=== PATIENT | female | born 1995 | race American Indian/Alaskan Native ===

== ENCOUNTER 2018-01-05 11:45 | Inpatient (IN) | payer MEDICAID, OTHER ==
[2018-01-05 11:45] VITALS: BMI 28.1
[2018-01-05 11:50] VITALS: O2SAT 100
--- NOTE | 2018-01-05 13:57 | ED PDOC ---
HPI: Psych/Substance Abuse Time Seen by Provider: 01/05/18 12:21 Chief Complaint (Nursing): Psychiatric Evaluation Chief Complaint (Provider): Psychiatric Evaluation History Per: Patient History/Exam Limitations: no limitations Onset/Duration Of Symptoms: Days Current Symptoms Are (Timing): Still Present Suicide/Self Injury Attempted (Context): None Associated Symptoms: Depression Additional Complaint(s): 22 y/o female with a history of depression, bipolar disorder, and ADHD presents to the ED for psychiatric evaluation. Patient states worsening depression began back in May 2017. She has a psychiatrist in [place] that has been prescribing her different medications which she states work for a few weeks, then stop working. She complains that she can't concentrate or perform well at work and will wake up in the morning crying. Patient states "I can't control my mind". Patient states she's been losing people around her because of her current condition. Denies any suicidal or homicidal ideation or visual/auditory hallucinations. Patient offers no physical complaints at present. LMP: 2 weeks ago. PMD: Dr. Calderón Past Medical History Reviewed: Historical Data, Nursing Documentation, Vital Signs Vital Signs: Last Vital Signs Temp 98.8 F 01/05/18 11:49 Pulse 78 01/05/18 11:49 Resp 20 01/05/18 11:49 BP 130/82 01/05/18 11:49 Pulse Ox 100 01/05/18 11:49 - Medical History PMH: Bipolar Disorder, Depression Denies: Asthma, Diabetes, HTN Other PMH: ADHD - Surgical History Surgical History: No Surg Hx - Family History Family History: States: Unknown Family Hx - Social History Current smoker - smoking cessation education provided: No Ex-Smoker (has not smoked in the last 12 months): No Alcohol: Social Drugs: Cannabis - Home Medications Home Medications: Ambulatory Orders Medication Instructions Recorded Biotin [Biotin] 1 cap PO DAILY 01/05/18 Dextroamphetamine/Amphetamine 30 mg PO BID 01/05/18 [Adderall 30 mg Tablet] FLUoxetine [Prozac] 20 mg PO Q12 01/05/18 Multivitamin [Multi-Vitamin Daily] 1 tab PO DAILY 01/05/18 OXcarbazepine [Trileptal] 300 mg PO DAILY 01/05/18 OXcarbazepine [Trileptal] 600 mg PO QPM 01/05/18 - Allergies Allergies/Adverse Reactions: Allergies Allergy/AdvReac Type Severity Reaction Status Date / Time No Known Allergies Allergy Verified 10/10/17 15:56 Review of Systems ROS Statement: Except As Marked, All Systems Reviewed And Found Negative Psych: Positive for: Depression. Negative for: Suicidal ideation (or homicidal ideation) Physical Exam - Reviewed Nursing Documentation Reviewed: Yes Vital Signs Reviewed: Yes - Physical Exam Comments: GENERAL APPEARANCE: Patient is awake, alert, oriented x 3. Emotionally distraught and tearful. SKIN: Warm, dry; (-) cyanosis EYES: (-) conjunctival pallor, (-) scleral icterus, (-) nystagmus. ENMT: Mucous membranes moist. Airway patent: (-) stridor. NECK: Supple, FROM (-) tenderness, (-) stiffness, (-) lymphadenopathy. CHEST AND RESPIRATORY: (-) rales, (-) rhonchi, (-) wheezes; breath sounds equal. Speaking in full sentences, respirations even and nonlabored. ABDOMEN: Soft, (-) distention, (-) tenderness, (-) guarding. NEURO AND PSYCH: Mental status as above. twx operator: Intact. Pupils equal and reactive; EOMI; (-) facial asymmetry; Gait steady , speech clear. - Laboratory Results Result Diagrams: 01/05/18 16:08 01/05/18 16:08 Urine POC: Negative - ECG O2 Sat by Pulse Oximetry: 100 (RA) Pulse Ox Interpretation: Normal Medical Decision Making Medical Decision Making: Time: 13:10 Impression: Depression Plan: * Crisis evaluation * Preg test Preg test: Negative 1510 Per crisis evaluation, patient to be admitted for Depression per Dr Starr. -CBC, CMP, U/A, and urine drug screen ordered Patient resting comfortably on re-evaluation with no additional complaints at this time. 1555 Patient reporting a frontal headache at this time. Patient reports a history of similar headaches. Denies N/V, visual changes, numbness/weakness, fever, neck pain/stiffness. Ibuprofen 600mg PO ordered. 1635 Labs reviewed and grossly unremarkable. Vitals stable. Patient is medically stable for psychiatric admission. On exam, patient remains AAOx3, in no acute distress. On exam, neck is supple, lungs CTA, cardiac RRR, abdomen is soft and non-tender, neuro exam shows no focal findings. Diagnostic results d/w the patient in great detail. Dx of depression d/w the patient. Based on history, exam, and diagnostic results plan will be for inpatient admission. Arrangements made for admission. Scribe Attestation: Documented by Murphy Castro acting as a scribe LUIGI Vidal MDibe Attestation: All medical record entries made by the Scribe were at my direction and personally dictated by me. I have reviewed the chart and agree that the record accurately reflects my personal performance of the history, physical exam, medical decision making, and the department course for this patient. I have also personally directed, reviewed, and agree with the discharge instructions and disposition. Disposition - Clinical Impression Clinical Impression: Depression - Patient ED Disposition Is Patient to be Admitted: Yes Counseled Patient/Family Regarding: Diagnosis - Disposition Disposition Time: 16:38 Condition: FAIR - Pt Status Changed To: Hospital Disposition Of: Inpatient - Admit Certification Admit to Inpatient:: After my assessment, the patient will require hospitalization for at least two midnights. This is because of the severity of symptoms shown, intensity of services needed, and/or the medical risk in this patient being treated as an outpatient. - POA Present On Arrival: None Results - Lab Results Lab Results: 01/05/18 01/05/18 01/05/18 16:08 16:08 15:43 WBC 7.9 RBC 4.43 Hgb 11.6 L D Hct 35.1 MCV 79.3 L D MCH 26.3 L MCHC 33.2 RDW 18.4 H Plt Count 256 MPV 9.3 Neut % (Auto) 65.2 Lymph % (Auto) 24.6 [place] % (Auto) 7.1 Eos % (Auto) 2.5 Baso % (Auto) 0.6 Neut # (Auto) 5.2 Lymph # (Auto) 1.9 [place] # (Auto) 0.6 Eos # (Auto) 0.2 Baso # (Auto) 0.1 Sodium 139 Potassium 3.6 Chloride 106 Carbon Dioxide 22 Anion Gap 15 BUN 5 L Creatinine 0.8 Est GFR ( Amer) > 60 Est GFR (Non-Af Amer) > 60 Random Glucose 84 Calcium 9.6 Total Bilirubin 0.2 AST 21 ALT 33 Alkaline Phosphatase 92 Total Protein 7.8 Albumin 4.4 Globulin 3.4 Albumin/Globulin Ratio 1.3 Urine Color Yellow Urine Clarity Clear Urine pH 8.0 Ur Specific [place] 1.009 Urine Protein Negative Urine Glucose (UA) Neg Urine Ketones Negative Urine Blood Small Urine Nitrate Negative Urine Bilirubin Negative Urine Urobilinogen 0.2-1.0 Ur Leukocyte Esterase Neg Urine RBC (Auto) 2 Urine Microscopic WBC 1 Ur Squamous Epith Cells 1 Urine Bacteria Rare Urine Opiates Screen Urine Methadone Screen Ur Barbiturates Screen Ur Phencyclidine Scrn Ur Amphetamines Screen U Benzodiazepines Scrn U Oth Cocaine Metabols U Cannabinoids Screen 01/05/18 15:43 WBC RBC Hgb Hct MCV MCH MCHC RDW Plt Count MPV Neut % (Auto) Lymph % (Auto) [place] % (Auto) Eos % (Auto) Baso % (Auto) Neut # (Auto) Lymph # (Auto) [place] # (Auto) Eos # (Auto) Baso # (Auto) Sodium Potassium Chloride Carbon Dioxide Anion Gap BUN Creatinine Est GFR ( Amer) Est GFR (Non-Af Amer) Random Glucose Calcium Total Bilirubin AST ALT Alkaline Phosphatase Total Protein Albumin Globulin Albumin/Globulin Ratio Urine Color Urine Clarity Urine pH Ur Specific [place] Urine Protein Urine Glucose (UA) Urine Ketones Urine Blood Urine Nitrate Urine Bilirubin Urine Urobilinogen Ur Leukocyte Esterase Urine RBC (Auto) Urine Microscopic WBC Ur Squamous Epith Cells Urine Bacteria Urine Opiates Screen Negative Urine Methadone Screen Negative Ur Barbiturates Screen Negative Ur Phencyclidine Scrn Negative Ur Amphetamines Screen Negative U Benzodiazepines Scrn Negative U Oth Cocaine Metabols Negative U Cannabinoids Screen Positive H
[2018-01-05 15:54] LABS: SQUAMOUS EPITHIAL 1 /hpf (0-5); URINE BACTERIA RARE (<OCC); URINE BILIRUBIN NEGATIVE (NEGATIVE); URINE BLOOD SMALL (NEGATIVE); URINE CLARITY CLEAR (Clear); URINE COLOR YELLOW (YELLOW); URINE GLUCOSE (UA) NEG (Normal); URINE LEUKOCYTE ESTERASE NEG Leu/uL (Negative); URINE PROTEIN NEGATIVE (NEGATIVE); URINE UROBILINOGEN 0.2-1.0 mg/dL (0.2-1.0)
[2018-01-05 16:14] LABS: BASO # 0.1 K/uL (0.0-0.2); BASO % 0.6 % (0.0-2.0); EOS # 0.2 K/uL (0.0-0.7); EOS % 2.5 % (0.0-4.0); HEMOGLOBIN 11.6 g/dL (12.0-16.0); LYMPH # 1.9 K/uL (1.0-4.3); LYMPH % 24.6 % (20.0-40.0); MEAN CELL VOLUME 79.3 fl (81.0-99.0); MEAN CORPUSCULAR HEMOGLOBIN 26.3 pg (27.0-31.0); MEAN CORPUSCULAR HGB CONC 33.2 g/dL (33.0-37.0); MEAN PLATELET VOLUME 9.3 fl (7.2-11.7); MONO # 0.6 K/uL (0.0-0.8); MONO % 7.1 % (0.0-10.0); NEUT # 5.2 K/uL (1.8-7.0); NEUT % 65.2 % (50.0-75.0); NRBC % 0.1 % (0.0-0.0); RBC 4.43 Mil/uL (3.80-5.20); RED CELL DISTRIBUTION WIDTH 18.4 % (11.5-14.5); WHITE BLOOD COUNT 7.9 K/uL (4.8-10.8)
[2018-01-05 16:21] LABS: BARBITURATES, UR NEGATIVE (NEGATIVE); BENZODIAZEPINES, UR NEGATIVE (NEGATIVE); OPIATES, UR NEGATIVE (NEGATIVE); PHENCYCLIDINE, UR NEGATIVE (NEGATIVE)
[2018-01-05 16:32] LABS: ALB/GLOB RATIO 1.3 (1.0-2.1); ALBUMIN 4.4 g/dL (3.5-5.0); ALT/SGPT 33 U/L (9-52); AST/SGOT 21 U/L (14-36); BLOOD UREA NITROGEN 5 mg/dl (7-17); CALCIUM 9.6 mg/dL (8.4-10.2); GFR AFRICAN-AMERICAN > 60; GFR NON-AFRICAN AMERICAN > 60
[2018-01-05] MEDS ORDERED: Magnesium Hydroxide Susp 30 ml UD PO PRN (20:57)
[2018-01-05] MEDS ORDERED: Alum-Mag Hydrox-Simethicone Susp (30 mL) PO PRN (20:57)
[2018-01-05] MEDS ORDERED: DiphenhydrAMINE 50 mg/ml Inj IM PRN (20:57)
--- NOTE | 2018-01-05 21:41 | PCM.BM ---
Treatment Plan Problems - Problems identified on initial assessmt Hopelessness/Helplessness Date Initiated: 01/05/18 Time Initiated: 21:40 Assessment reference: NA Status: Active Altered Sleep Patterns Date Initiated: 01/05/18 Time Initiated: 21:40 Assessment reference: NA Status: Active Treatment assets and liabiliti Patient Assests: cooperative, educated, ADL independent, good support system, negotiates basic needs, cognitively intact Patient Liabilities: relationship conflicts - Milieu Protocol Maintain good personal hygiene: daily Encourage regular showers, daily Remind patient to perform daily oral care, daily Assist patient to perform ADL's Conduct patient checks and document Observation sheet: Q15 minutes Maintain personal safety: every shift Educate patient to report safety concerns to staff, every shift Monitor environment for contraband/sharps Medication safety: Monitor for expected outcome, potential side effects: every shift, Assess barriers to learning: every shift, Assess readiness for medication education: every shift
[2018-01-06 09:55] LABS: T4 5.84 ug/dl (5.5-11.0)
--- NOTE | 2018-01-06 14:15 | PCM.PSYCH ---
Initial Psychiatric Evaluation - Initial Psychiatric Evaluation Chief Complaint (in patient's own words): I am not feeling right with my medications Patient's Reaction to Hospitalization: pt requested help History of Present Illness and Precipitating Events: pt is 22 ys old female no previous psychiatric hospitalizations , currently under care of private psychiatrist since last May, pt has been diagnosed with ADHD, Bipolar/ depression pt has been placed on several medications including prozac, adderall and trileptal, pt reported she continued to suffer from episodes of depression, with low mood tearfullness irritability , poor concentration, anger episodes where she would be verbaly abusive towards close people, pt for past month has been more depressed due to 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, which was impacted by her anger episodes and depression, pt has been mourning the relation, feeling hopeless and helpless on day of evaluation she had suicidal thoughts with plan to overdose, pt came to ER seeking help pt debied active suicidal ideation on the unit, urine toxicology positive for cannabis Current Medications: Active Medications Generic Name Dose Route Start Last Admin Trade Name Freq PRN Reason Stop Dose Admin Acetaminophen 650 mg 01/05/18 20:57 Tylenol 325mg Tab PO Q4 PRN pain level 4-7 Al Hydrox/Mg Hydrox/Simethicone 30 ml 01/05/18 20:57 Maalox Plus 30 Ml PO Q4 PRN Dyspepsia Diphenhydramine HCl 50 mg 01/05/18 20:57 Benadryl IM Q6 PRN Extrapyramidal S/S Unable PO Diphenhydramine HCl 50 mg 01/05/18 20:57 Benadryl PO Q6 PRN Extrapyramidal Symptoms Diphenhydramine HCl 50 mg 01/05/18 21:00 01/05/18 22:02 Benadryl PO 50 mg HS PRN Administration Sleep Haloperidol 5 mg 01/05/18 20:57 Haldol PO Q4 PRN Agitation Haloperidol Lactate 5 mg 01/05/18 20:57 Haldol IM Q4 PRN Agitation, Unable to Take PO Lorazepam 2 mg 01/05/18 20:57 Ativan IM Q4 PRN Anxiety/Agitation,Unable PO Lorazepam 2 mg 01/05/18 20:57 Ativan PO Q4 PRN Anxiety/Agitation Magnesium Hydroxide 30 ml 01/05/18 20:57 Milk Of Magnesia PO HS PRN Constipation Trazodone HCl 50 mg 01/06/18 22:00 Desyrel PO HS JASPAL Past Psychiatric History - Past Psychiatric History Explanation of prior treatment: pt ist treatment by private psychiatrist last may, no history of previous hospitalizations History of ETOH/Drug Use: cannabis abuse Pertinent Medical Hx (Current Medical&Sleep Prob, Allergies): Allergies Allergy/AdvReac Type Severity Reaction Status Date / Time No Known Allergies Allergy Verified 10/10/17 15:56 Biotin [Biotin] 1 cap PO DAILY 01/05/18 Dextroamphetamine/Amphetamine [Adderall 30 mg Tablet] 30 mg PO BID 01/05/18 FLUoxetine [Prozac] 20 mg PO Q12 01/05/18 Multivitamin [Multi-Vitamin Daily] 1 tab PO DAILY 01/05/18 OXcarbazepine [Trileptal] 300 mg PO DAILY 01/05/18 OXcarbazepine [Trileptal] 600 mg PO QPM 01/05/18 Mental Status Examination - Personal Presentation Personal Presentation: Looks stated age - Affect Affect: Constricted, Depressed - Reliability in Providing Information Reliability in Providing Information: Fair - Speech Speech: Relevant - Mood Mood: Depressed, Anxious - Formal Thought Process Formal Thought Process: Circumstantial - Obsessions/Compulsions Obsessions: No Compulsions: No - Cognitive Functions Orientation: Person, Place Sensorium: Alert Estimate of Intelligence: Average - Risk Risk: Suicidal, Diminished functioning - Strength & Assets Inventory Strength & Assets Inventory: Family support - Limitations Additional comments: financial difficulties DSM 5 DX - DSM 5 DSM 5 Diagnosis: major depression/ rule out bipolar II disorder cannabis use disorder impulse control disorder - Recommended/Plan of Treatment Treatment Recommendations and Plan of Treatment: start abilify 5mg daily with plan to uptitrate trazodone 50 mg qhs CBT group and supportive therapy
[2018-01-07 11:47] VITALS: BP 112/71; PULSE 96; RESP 20; TEMP 99
== END 2018-01-07 13:33 | disposition left against medical advice (07) | DRG 881 ==
LOC: H.ER 11:45 → H.ERHOLD 16:38 → H.PSYCH 20:53
PROVIDERS: ADMIT Psychiatry & Neurology Psychiatry; ATTEND Psychiatry & Neurology Psychiatry
PROC: GZHZZZZ Group Psychotherapy (ICD-10-PCS; principal; 2018-01-05)
PROC: GZ58ZZZ Individual Psychotherapy, Cognitive-Behavioral (ICD-10-PCS; 2018-01-05)
PROC: GZ56ZZZ Individual Psychotherapy, Supportive (ICD-10-PCS; 2018-01-05)
DX: F32.9 Major depressive disorder, single episode, unspecified (principal); F12.90 Cannabis use, unspecified, uncomplicated; F63.9 Impulse disorder, unspecified; F90.9 Attention-deficit hyperactivity disorder, unspecified type